=== PATIENT | male | born 1985 | race Caucasian/White ===

== ENCOUNTER 2021-01-10 12:36 | Emergency (ER) | payer SELFPAY | END 2021-01-10 13:25 | disposition home or self-care (01) | LOC: NAV ERS 12:36 | DX: S50.11XA Contusion of right forearm, initial encounter (principal); F17.210 Nicotine dependence, cigarettes, uncomplicated; X58.XXXA Exposure to other specified factors, initial encounter ==

== ENCOUNTER 2023-02-26 15:33 | Emergency (ER) | payer SELFPAY ==
[2023-02-26] MEDS ORDERED: Tetracaine 0.5% PF 4 ML BOT ONE (15:51)
[2023-02-26] MEDS ORDERED: Fluorescein Opthalmic Strip ONE (15:51)
== END 2023-02-26 16:47 | disposition home or self-care (01) ==
LOC: NAV ERS 15:33
DX: T15.02XA Foreign body in cornea, left eye, initial encounter (principal); F17.210 Nicotine dependence, cigarettes, uncomplicated; W44.F9XA Other object of natural or organic material, entering into or through a natural orifice, initial encounter; Y93.89 Activity, other specified; Z79.899 Other long term (current) drug therapy
CPT/HCPCS: 65222